=== PATIENT | female | born 1955 | race Caucasian/White ===

== ENCOUNTER → 2016-09-06 | Outpatient (CLI) | payer OTHER ==
[2016-09-06 19:57] LABS: Basophils % (A) 0 %; CH 29.7; CHCM 31.3; Eosinophils # (A) 0.2 k/uL (0-0.7); Eosinophils % (A) 3 %; HCT 42.8 % (34.0-46.0); HDW 2.27; HGB 13.6 gm/dL (11.4-16.0); Luc # (Auto) 0.09; Luc % (Auto) 2; Lymphocytes # (A) 1.2 k/uL (1.0-4.8); Lymphocytes % (A) 23 %; MCH 30.2 pg (25.0-35.0); MCHC 31.7 g/dL (31.0-37.0); MCV 95.5 fL (80.0-100.0); Mean Platelet Volume 7.4; Monocytes # (A) 0.3 k/uL (0-1.0); Monocytes % (A) 7 %; Neutrophils # (A) 3.4 k/uL (1.3-7.7); Neutrophils % (A) 65 %; RBC 4.49 m/uL (3.80-5.40); RDW 13.1 % (11.5-15.5); WBC 5.2 k/uL (3.8-10.6); WBC (Perox) 5.42
[2016-09-06 20:16] LABS: ALT 26 U/L (9-52); AST 24 U/L (14-36); Alkaline Phosphatase 78 U/L (38-126); Anion Gap 10 mmol/L; Blood Urea Nitrogen 19 mg/dL (7-17); Calcium 9.8 mg/dL (8.4-10.2); Carbon Dioxide 24 mmol/L (22-30); Chloride 105 mmol/L (98-107); Glucose 87 mg/dL (74-99); Non-African American GFR(MDRD) >60 (>60 ml/min/1.73 sqM); Potassium 4.6 mmol/L (3.5-5.1); Sodium 139 mmol/L (137-145); Total Bilirubin 0.4 mg/dL (0.2-1.3); Total Protein 6.8 g/dL (6.3-8.2)
[2016-09-06 20:20] LABS: Rheumatoid Factor, Qnt <9 IU/mL (<12)
[2016-09-07 01:38] LABS: ANA w/Reflex to Titer NEGATIVE (NEGATIVE)
== END | disposition home or self-care (01) ==
LOC: MMGSC 11:46
PROVIDERS: ATTEND Family Medicine
DX: E55.9 Vitamin D deficiency, unspecified (principal); M79.1 Myalgia; M25.50 Pain in unspecified joint
CPT/HCPCS: 36415; 80053; 82306; 84443; 85025; 86038; 86431

== ENCOUNTER → 2017-02-14 | Outpatient (CLI) | payer OTHER ==
[2017-02-14 14:04] LABS: Appearance,Urine Clear (Clear); Bacteria,Urine Rare /hpf; Bilirubin,Urine Negative (Negative); Glucose,Urine (UA) Negative (Negative); Ketones,Urine Negative (Negative); Leukocyte Esterase,Urine Negative (Negative); Nitrite,Urine Negative (Negative); PH, Urine 6.5 (5.0-8.0); Particle Count 742; Protein,Urine Negative (Negative); RBC,Urine <1 /hpf (0-5); Specific Gravity,Urine 1.003 (1.001-1.035); Squamous Epithelial Cell,Urine 2 /hpf (0-4); UA Billing (MACRO vs. MICRO) MICRO; Urobilinogen,Urine <2.0 mg/dL (<2.0); WBC,Urine <1 /hpf (0-5)
[2017-02-14 14:05] LABS: CH 29.6; CHCM 31.8; HCT 42.9 % (34.0-46.0); HDW 2.35; HGB 13.9 gm/dL (11.4-16.0); MCH 30.3 pg (25.0-35.0); MCHC 32.3 g/dL (31.0-37.0); MCV 93.7 fL (80.0-100.0); Mean Platelet Volume 6.4; RBC 4.58 m/uL (3.80-5.40); RDW 12.7 % (11.5-15.5); WBC 7.1 k/uL (3.8-10.6)
[2017-02-14 14:22] LABS: ALT 38 U/L (9-52); AST 22 U/L (14-36); Alkaline Phosphatase 78 U/L (38-126); Anion Gap 6 mmol/L; Blood Urea Nitrogen 10 mg/dL (7-17); C Reactive Protein 7.8 mg/L (<10.0); Calcium 10.3 mg/dL (8.4-10.2); Carbon Dioxide 27 mmol/L (22-30); Chloride 106 mmol/L (98-107); Creatine Kinase 58 U/L (30-135); Glucose 87 mg/dL (74-99); Magnesium 1.9 mg/dL (1.6-2.3); Non-African American GFR(MDRD) >60 (>60 ml/min/1.73 sqM); Potassium 4.2 mmol/L (3.5-5.1); Sodium 139 mmol/L (137-145); Total Bilirubin 0.6 mg/dL (0.2-1.3); Total Protein 7.1 g/dL (6.3-8.2)
[2017-02-14 15:25] LABS: Erythrocyte Sedimentation Rate 9 mm/hr (0-20)
[2017-02-18 08:39] LABS: Vitamin E (Alpha Tocopherol) 1042 ug/dL (500-1800)
[2017-02-20 19:38] LABS: Vitamin K 301 pg/mL (80-1160)
[2017-02-22 13:26] LABS: Nicotinamide 20 ng/mL; Nicotinic Acid None Detected; Nicotinuric Acid None Detected
== END | disposition home or self-care (01) ==
LOC: LABWHC1 13:25
PROVIDERS: ATTEND Psychiatry & Neurology Pain Medicine
DX: G89.4 Chronic pain syndrome (principal); R53.83 Other fatigue; Z79.899 Other long term (current) drug therapy
CPT/HCPCS: 36415; 80053; 81001; 82306; 82550; 83036; 83519; 83735; 84207; 84425; 84439; 84443; 84446; 84590; 84591; 84597; 85027; 85652; 86140

== ENCOUNTER → 2017-02-19 | Outpatient (CLI) | payer OTHER ==
--- NOTE | 2017-02-19 16:57 | MR ---
EXAMINATION TYPE: MR cspine/lspine wo con DATE OF EXAM: 02/19/2017 COMPARISON: NONE HISTORY: Headaches, Neck pain, Low back pain TECHNIQUE: Multiplanar, multisequence imaging of the lumbar and cervical spine is performed without I V contrast. FINDINGS: Lumbar spine MRI: Sagittal images of the lumbar spine show vertebral body heights and alignment to ap pear satisfactory. The intervertebral discs show loss of height and signal compatible with disc desic cation and degenerative disc disease, there is multilevel Schmorl's node formation, endplate discogen ic marrow signal change, associated spondylosis compatible with degenerative disc disease. L5-S1: Some facet arthropathy changes present. No significant foraminal encroachment or central steno sis, no sizable disc herniation. L4-5: Posterior extension of endplate disc complex contacts the anterior thecal sac. Circumferential extension of endplate disc complex encroaches somewhat on the foramen on the left possibly contribute d by spinal curvature. There is facet arthropathy with hypertrophy of the ligamentum flavum encroachi ng on the lateral recesses. L3-4: Facet arthropathy with hypertrophy of ligamentum flavum causes some encroachment on the lateral recesses, circumferential extension encroaches on the right neural foramen as well as the anterior t hecal sac. No significant central stenosis. L2-3: Circumferential posterior broad-based disc bulge causes mild anterior mass effect on the thecal sac. No significant central stenosis or foraminal encroachment. There is some facet arthropathy walters ge. L1-2: Posterior broad-based disc bulge causes mild anterior mass effect on the thecal sac. No signifi cant foraminal encroachment or central stenosis. There is mild facet arthropathy. IMPRESSION: Degenerative disc disease and facet arthropathy. Additional findings above. Cervical spine MRI: Cervical vertebral bodies show preserved height. Bone marrow signal is maintained, alignment is near- anatomic. There is multilevel spondylosis with associated loss of disc height and signal at the inter vertebral levels. Cervical cord signal, cervical medullary junction are normal. C2-3: Unremarkable C3-4: Lateral extension endplate disc complex causes some mild foraminal encroachment on the right gr eater than left, there is mild anterior mass effect on the thecal sac. C4-5: Circumferential posterior broad-based disc bulge may contact the anterior cervical cord. There is lateral extension causing foraminal encroachment right greater than left. C5-6: No significant central stenosis or foraminal encroachment. No sizable disc herniation. C6-7: Posterior extension of endplate disc complex causes anterior mass effect on the thecal sac. Lat eral extension of endplate disc complex causes some mild foraminal encroachment on the left greater t mancia right. IMPRESSION: Degenerative disc disease, multilevel foraminal encroachment as described.
== END | disposition home or self-care (01) ==
LOC: RADMRIMAIN 15:37
PROVIDERS: ATTEND Psychiatry & Neurology Pain Medicine
DX: M51.36 Other intervertebral disc degeneration, lumbar region (principal); M46.96 Unspecified inflammatory spondylopathy, lumbar region; M50.30 Other cervical disc degeneration, unspecified cervical region
CPT/HCPCS: 72141; 72148

== ENCOUNTER → 2017-12-12 | Outpatient (CLI) | payer OTHER ==
[2017-12-12 18:18] LABS: Blood Urea Nitrogen 19 mg/dL (7-17)
== END | disposition home or self-care (01) ==
LOC: LABMAIN 17:35
PROVIDERS: ATTEND Orthopaedic Surgery
DX: Z01.812 Encounter for preprocedural laboratory examination (principal); N28.9 Disorder of kidney and ureter, unspecified
CPT/HCPCS: 36415; 82565; 84520

== ENCOUNTER 2018-01-01 09:18 | Day surgery (SDC) | payer OTHER ==
[2017-12-30 08:38] VITALS: BMI 30.1
[~2018-01-01 09:18] MED LIST: Pre Op ABX Message 1 EACH MISC MISCELLANE ONE
[2018-01-01] MEDS ORDERED: ONDANSETRON 4 MG/2 ML VIAL ONE (10:37)
[2018-01-01 10:42] VITALS: TEMP 97.8
[2018-01-01] MEDS ORDERED: LACTATED RINGERS 1,000 ML IV ONE ×2 (10:44)
[2018-01-01] MEDS ORDERED: LIDOCAINE 1% 20 ML VIAL (10MG/ML) FOR IV START INTRADERMA ONE (10:45)
[2018-01-01] MEDS ORDERED: VANCOMYCIN 1,000 MG in SODIUM CHLORIDE 0.9% 250 ML IVPB SCH (10:45)
[2018-01-01] MEDS ORDERED: fentaNYL (PF) 50 MCG/ML 2 ML AMP ONE (11:15)
[2018-01-01] MEDS ORDERED: MIDAZOLAM 2 MG/2 ML VIAL ONE (11:15)
[2018-01-01] MEDS ORDERED: KETAMINE 10 MG/ML 20 ML VIAL ONE (11:15)
[2018-01-01] MEDS ORDERED: LIDOCAINE 1% INJ 10MG/ML (20 ML MDV) ONE (11:15)
[2018-01-01] MEDS ORDERED: PROPOFOL 10 MG/ML 20 ML VIAL IV ONE (11:15)
[2018-01-01] MEDS ORDERED: LIDOCAINE 2% INJ 20 MG/ML SQ ONE (11:32)
[2018-01-01] MEDS ORDERED: Acetaminophen-Codeine 300-30mg TAB PO PRN (12:00)
[2018-01-01] MEDS ORDERED: PANTOPRAZOLE 40 MG TABLET PO PRN (12:03)
[2018-01-01] MEDS ORDERED: ALBUTEROL INHALER 60 PUFF/8 GM INHALER INHALATION PRN (12:03)
[2018-01-01] MEDS ORDERED: COMBIPATCH TOPICAL SCH (12:15)
[2018-01-01 12:22] VITALS: RESP 18
--- NOTE | 2018-01-01 12:23 | P.OP ---
Date of Procedure: 01/01/18 Preoperative Diagnosis: Right foot abscess at the fourth MTP joint in between fourth and fifth metatarsals right foot pain Postoperative Diagnosis: Likely complex ganglion cyst at the fourth MTP joint right foot Anesthesia: MAC, local Pathology: other (Deep wound specimen the presumable cyst to pathology, deep wound culture to microbiology) Condition: stable Disposition: PACU Description of Procedure: BRIEF OPERATIVE NOTE Preoperative Diagnosis: Right foot abscess at the fourth and fifth metatarsals around the fourth metatarsal head, right foot pain Postoperative Diagnosis: Same plus Likely complex cyst at the fourth MTP joint Procedure: Irrigation and debridement with excisional debridement deep space of the right fourth MTP joint and between the fourth and fifth metatarsal of the right foot Surgeon: Dr. Kaplan 6Th Grade Teacher: Rob MORRISON Anesthesia: Sedation with local Estimated blood loss: Less than 10 mL Complications: None apparent Components implanted: None Specimen: Deep wound culture at the different space between fourth and fifth metatarsal to microbiology and excisional cyst material from the fourth metatarsal head to pathology Disposition: To recovery room in good stable condition. OPERATIVE INDICATIONS The patient is a very pleasant 62-year-old female who has history of fibromyalgia. She had developed erythema and drainage at her right foot between her fourth and fifth metatarsal. This had been worsening over time and there was some drainage from the space. She had seen her primary care doctor who tried to treat the area locally but there was worsening of the space and she was referred for orthopedics and on evaluation she had further drainage and erythema at the space and further workup with MRI showed reaction around the MTP joint with possible complex cyst versus hematoma versus other etiology. After discussing the various treatment options both conservative and operative we felt that the best alternative for the patient would be to pursue surgical intervention with irrigation and debridement and excisional debridement. The patient had seen Dr. Villegas in the office in this regard and have discussed case with him at length. The patient has been scheduled for surgery with him however he was unavailable due to a family emergency and I was able to see the patient in his absence. I discussed the case further with the patient and reviewed the notations and images. I was in agreement with the seizure of irrigation and debridement of the right foot. I answered the patient's questions best my ability in a language that she can understand. I discussed the risks of the procedure including but not limited to the risk of bleeding risk of infection risk and need for further surgery risk of continuing pain was of recurrent as well as the fact that surgery may not alleviate her symptoms were explained. Patient like to proceed with surgical intervention and signed informed consent. OPERATIVE SUMMARY After discussing all the risks, patient alternatives and benefits at length, the patient elected to proceed with surgical intervention, signed informed consent, and presented for their procedure. The patient was seen and examined in the preoperative holding area and the surgical site was marked. The patient was given antibiotics and brought to the operating room. The patient was sedated by anesthesia with her airway and C-spine well- maintained supine position in standard fashion. We were careful to pad any bony prominences and pressure points. We were careful to maintain the patient's cervical spine and good neutral alignment and position throughout. The patient was prepped and draped with her right foot free a tourniquet was placed over her right proximal pole thigh but was not utilized in the case in a normal standard fashion. An appropriate timeout and keystone protocol performed. We were able to proceed with the surgery. The the area proximal to the wound area was infiltrated with local anesthetic. An incision was made longitudinally at the lateral border of the fourth MTP joint over the erythematous area. There is no gross pus. The skin was indurated and there was some granular fluid was able to be excised from the subcutaneous space. This was sent to pathology. I was able to dissect down to the MTP joint of the fourth metatarsal and between the fourth and fifth metatarsals. There is no gross pus. Deep wound culture was taken at the area and sent microalgae. I was able to palpate and feel a cyst like structure and from the fourth metatarsal MTP joint. I was able to dissect it out and remove the capsule piecemeal. The mass was sent to pathology. The joint appeared to be intact. There did not seem to be direct bony involvement. There is no gross pus or infection. There was complex granular type material at the space which was removed and sent as specimen as well. Good hemostasis maintained. We were able to proceed with closure. the skin was closed with 4-0 nylon horizontal mattress sutures The wound was cleaned and dried and dressed with the appropriate dressing. The drapes were broken down. The patient was gently rolled back onto their hospital bed being careful to maintain their cervical spine and good neutral alignment and position. They were woken up by anesthesia , and brought to the recovery room in good stable condition. The patient will be able to be discharged home today when she is stable from postanesthesia care unit with appropriate discharge instructions we will plan to see her back in approximately 2 days for recheck evaluation. She'll be sent home with prophylactic antibiotics. We will continue to follow them closely about the postoperative course.
[2018-01-01] MEDS ORDERED: Acetaminophen-Codeine 300-30mg TAB PO ONE (13:25)
[2018-01-01 14:18] VITALS: BP 121/58; PULSE 80
[2018-01-01] MEDS ORDERED: traMADol 50 MG TAB PO SCH (18:00)
[2018-01-01] MEDS ORDERED: NON-FORMULARY DRUG (Dextroamphetamine/Amphetamine [Adderall] 20 MG) PO SCH (21:00)
[2018-01-01] MEDS ORDERED: ASPIRIN-ACET-CAFF 250-250-65MG 1 EACH TAB PO SCH (21:00)
[2018-01-01] MEDS ORDERED: VANCOMYCIN 1,500 MG in SODIUM CHLORIDE 0.9% 250 ML IVPB SCH (21:00)
[2018-01-01] MEDS ORDERED: ZANAFLEX PO SCH (21:00)
[2018-01-01] MEDS ORDERED: PRAMIPEXOLE 0.125 MG TAB PO SCH (21:00)
[2018-01-02] MEDS ORDERED: MULTIVITAMINS, THERA 1 EACH TAB PO SCH (09:00)
== END 2018-01-01 14:34 | disposition home or self-care (01) ==
LOC: OR 09:18
PROVIDERS: ATTEND Orthopaedic Surgery Orthopaedic Surgery of the Spine
DX: M25.871 Other specified joint disorders, right ankle and foot (principal); R23.4 Changes in skin texture; M79.7 Fibromyalgia; Z85.828 Personal history of other malignant neoplasm of skin; J45.909 Unspecified asthma, uncomplicated; K21.9 Gastro-esophageal reflux disease without esophagitis; Z79.82 Long term (current) use of aspirin; Z79.891 Long term (current) use of opiate analgesic; Z79.899 Other long term (current) drug therapy
CPT/HCPCS: 87070; 87075; 87205; 88304

== ENCOUNTER 2018-02-12 10:49 | Day surgery (SDC) | payer OTHER ==
[2018-02-10 14:37] VITALS: BMI 30.1
[~2018-02-12 10:49] MED LIST changes: +DEXAMETHASONE SOD PHOSPHATE 10 MG/ML 1 ML VIAL IV ONE; +HYDROmorphone 0.5 MG/0.5 ML SYRINGE IVP PRN; +LACTATED RINGERS 1,000 ML IV SCH; +LIDOCAINE 1% 20 ML VIAL (10MG/ML) FOR IV START INTRADERMA PRN; +ONDANSETRON 4 MG/2 ML VIAL IVP ONE; -Pre Op ABX Message 1 EACH MISC MISCELLANE ONE; +SCOPOLAMINE 1.5MG/72HR PATCH TRANSDERM ONE
[2018-02-12 11:57] VITALS: RESP 18; TEMP 98.4
[2018-02-12] MEDS ORDERED: LIDOCAINE 1% INJ 10MG/ML (20 ML MDV) ONE (12:35)
[2018-02-12] MEDS ORDERED: PROPOFOL 10 MG/ML 20 ML VIAL IV ONE (12:35)
--- NOTE | 2018-02-12 12:56 | P.PCN ---
Date of Procedure: 02/12/18 Procedure(s) Performed: Brief history: Patient is a pleasant 72-year-old white female, scheduled for an elective upper endoscopy as well as colonoscopy as a part of evaluation of long-standing history of GERD/Vail's esophagus and screening for colon neoplasia. Her last upper endoscopy and colonoscopy were done several years ago at [facility]. Procedure performed: Esophagogastroduodenoscopy Colonoscopy Preoperative diagnosis: Long-standing bleeding history of GERD Screening for colon cancer Anesthesia: MAC Procedure: After informed consent was obtained from the patient was brought into the endoscopy unit and IV sedation was administered by anesthesia under continuous monitoring. Initially upper endoscopy was done. The Olympus GF 160 video endoscope was inserted inserted into the mouth and esophagus intubated without any difficulty and was gradually advanced into the stomach and duodenum and carefully examined. The bulb and second part of the duodenum appeared normal. The scope was then withdrawn into the stomach adequately insufflated with air and upon careful examination the antrum had mild gastritic and biopsies were done from this area. The body, cardia and fundus appeared normal. The scope was then withdrawn into the esophagus. The GE junction was located at 40 cm to the incisors. Small sliding Hiatal hernia noted. It appeared regular with no erythema erosions or ulcerations. No evidence of Vail's esophagus. Rest of the esophagus appeared normal. Patient tolerated the procedure well. At this time the patient continued to remain sedation. Initial digital rectal examination was normal. Olympus CF 160 video colonoscope was then inserted into the rectum and gradually advanced to the cecum without any difficulty. Careful examination was performed as the scope was gradually being withdrawn. The prep was excellent. The cecum, ascending colon, transverse colon, descending colon, sigmoid colon and rectum appeared normal. Retroflexion was performed in the rectum and no lesions were noted. Patient tolerated the procedure well. Impression: 1. Upper endoscopy revealed small hiatal hernia and mild gastritis. No evidence of Vail's esophagus 2. Colonoscopy was within normal limits with no evidence of colitis or colorectal neoplasia Recommendations: Findings of this examination were discussed with the patient as well as her family. She was advised to follow with the biopsy results., She was advised to continue with Prilosec 20 mg daily and follow antireflux measures. She can have a repeat screening colonoscopy in 10 years
[2018-02-12 13:19] VITALS: BP 142/60; PULSE 90
== END 2018-02-12 13:40 | disposition home or self-care (01) ==
LOC: ORWHC2ENDO 10:49
PROVIDERS: ATTEND Internal Medicine Gastroenterology
DX: Z12.11 Encounter for screening for malignant neoplasm of colon (principal); K29.50 Unspecified chronic gastritis without bleeding; K44.9 Diaphragmatic hernia without obstruction or gangrene; K21.9 Gastro-esophageal reflux disease without esophagitis; J45.909 Unspecified asthma, uncomplicated; F98.8 Other specified behavioral and emotional disorders with onset usually occurring in childhood and adolescence; Z79.899 Other long term (current) drug therapy; Z79.891 Long term (current) use of opiate analgesic; Z98.51 Tubal ligation status
CPT/HCPCS: 88305; 43239; J2001; J2704; G0121

== ENCOUNTER → 2018-09-11 | Outpatient (CLI) | payer OTHER ==
--- NOTE | 2018-09-15 08:35 | MM ---
Reason for exam: screening (asymptomatic). Last mammogram was performed 2 years and 4 months ago. History: Patient is postmenopausal. Taking estrogen. Physical Findings: A clinical breast exam by your physician is recommended on an annual basis and results should be correlated with mammographic findings. MG 3D Screening Mammo W/Cad Bilateral CC and MLO view(s) were taken. Prior study comparison: May 16, 2016, mammogram. February 24, 2015, mammogram. There are scattered fibroglandular densities. No significant changes when compared with prior studies. ASSESSMENT: Benign, BI-RAD 2 RECOMMENDATION: Routine screening mammogram of both breasts in 1 year.
== END | disposition home or self-care (01) ==
LOC: RADMAMWWP 10:53
PROVIDERS: ATTEND Family Medicine
DX: Z12.31 Encounter for screening mammogram for malignant neoplasm of breast (principal)
CPT/HCPCS: 77063; 77067

== ENCOUNTER → 2020-02-02 | Outpatient (CLI) | payer BC ==
--- NOTE | 2020-02-04 11:57 | MM ---
Reason for exam: screening (asymptomatic). Last mammogram was performed 1 year and 5 months ago. History: Patient is postmenopausal. Taking estrogen. Physical Findings: A clinical breast exam by your physician is recommended on an annual basis and results should be correlated with mammographic findings. MG 3D Screening Mammo W/Cad Bilateral CC and MLO view(s) were taken. Prior study comparison: September 11, 2018, bilateral MG 3d screening mammo w/cad. May 16, 2016, mammogram. Focal asymmetry left upper outer quadrant, stable. No significant changes when compared with prior studies. ASSESSMENT: Benign, BI-RAD 2 RECOMMENDATION: Routine screening mammogram of both breasts in 1 year.
== END | disposition home or self-care (01) ==
LOC: RADMAMWWP 15:02
PROVIDERS: ATTEND Family Medicine
DX: Z12.31 Encounter for screening mammogram for malignant neoplasm of breast (principal)
CPT/HCPCS: 77063; 77067

== ENCOUNTER → 2021-05-15 | Outpatient (CLI) | payer BC ==
--- NOTE | 2021-05-16 11:13 | MM ---
Reason for exam: screening (asymptomatic). Last mammogram was performed 1 year and 3 months ago. History: Patient is postmenopausal. Taking estrogen beginning at age 56. Physical Findings: A clinical breast exam by your physician is recommended on an annual basis and results should be correlated with mammographic findings. MG 3D Screening Mammo W/Cad Bilateral CC and MLO view(s) were taken. Prior study comparison: February 02, 2020, bilateral MG 3d screening mammo w/cad. September 11, 2018, bilateral MG 3d screening mammo w/cad. There are scattered fibroglandular densities. Finding: There are indeterminate calcifications in the left breast, lateral on CC. New finding since February 02, 2020 and September 11, 2018. ASSESSMENT: Incomplete: need additional imaging evaluation, BI-RAD 0 RECOMMENDATION: Special view mammogram of the left breast. [facility] will attempt to contact patient to return for supplemental views.
== END | disposition home or self-care (01) ==
LOC: RADMAMWWP 14:51
PROVIDERS: ATTEND Family Medicine
DX: Z12.31 Encounter for screening mammogram for malignant neoplasm of breast (principal); Z78.0 Asymptomatic menopausal state
CPT/HCPCS: 77063; 77067

== ENCOUNTER → 2021-05-18 | Outpatient (CLI) | payer BC ==
--- NOTE | 2021-05-18 11:37 | MM ---
Reason for exam: additional evaluation requested from abnormal screening. Last mammogram was performed less than 1 month ago. History: Patient is postmenopausal and history of other cancer. Taking estrogen beginning at age 56. Physical Findings: Nurse did not find any significant physical abnormalities on exam. MG 3D Work Up W/Cad LT CC with magnification, LM with magnification, and LM view(s) were taken of the left breast. Prior study comparison: May 15, 2021, bilateral MG 3d screening mammo w/cad. February 02, 2020, bilateral MG 3d screening mammo w/cad. There are scattered fibroglandular densities. Faint, subtle grouped calcifications upper outer quadrant appear punctate. 6 months follow up recommended. These results were verbally communicated with the patient and result sheet given to the patient on 05/18/21. ASSESSMENT: Probably benign, BI-RAD 3 RECOMMENDATION: Follow-up diagnostic mammogram of the left breast in 6 months.
== END | disposition home or self-care (01) ==
LOC: RADMAMWWP 10:18
PROVIDERS: ATTEND Family Medicine
DX: R92.8 Other abnormal and inconclusive findings on diagnostic imaging of breast (principal); Z78.0 Asymptomatic menopausal state
CPT/HCPCS: 77061; 77065

== ENCOUNTER → 2021-05-19 | Outpatient (CLI) | payer BC ==
--- NOTE | 2021-05-19 13:32 | US ---
EXAMINATION TYPE: US abdomen complete DATE OF EXAM: 05/19/2021 COMPARISON: NONE CLINICAL HISTORY: R14.0 abd fullness. EXAM MEASUREMENTS: Liver Length: 12.3 cm Gallbladder Wall: Surgically absent CBD: 0.6 cm Spleen: 9.8 cm Right Kidney: 11.4 x 3.9 x 5.0 cm Left Kidney: 9.8 x 4.0 x 4.5 cm Pancreas: wnl as seen, mostly obscured by overlying bowel gas Liver: Increased attenuation Gallbladder: Surgically absent Evidence for sonographic Flores's sign: no CBD: wnl Spleen: wnl Right Kidney: No hydronephrosis or masses seen Left Kidney: No hydronephrosis or masses seen, measures smaller than right Upper IVC: wnl Abd Aorta: bifurcation obscured by overlying bowel gas, otherwise wnl IMPRESSION: 1. No acute changes ultrasound abdomen.
== END | disposition home or self-care (01) ==
LOC: RADUSWWP 09:41
PROVIDERS: ATTEND Family Medicine
DX: R14.0 Abdominal distension (gaseous) (principal)
CPT/HCPCS: 76700

== ENCOUNTER → 2021-12-28 | Outpatient (CLI) | payer MEDICARE ==
--- NOTE | 2021-12-28 13:21 | MM ---
Reason for Exam: Follow-up at short interval from prior study. Last screening mammogram was performed 7 month(s) ago. Patient History: Menarche at age 14. First Full-Term at age 21. Postmenopausal. Other cancer. Currently using Estrogen, starting at age 56. Risk Values: Yanique 5 year model risk: 1.5%. NCI Lifetime model risk: 5.6%. Prior Study Comparison: 02/02/2020 Bilateral Screening Mammogram, [facility]. 05/15/2021 Bilateral Screening Mammogram, [facility]. 05/18/2021 Left Diagnostic Mammogram, [facility]. Tissue Density: Left: There are scattered fibroglandular densities. Findings: Analyzed By CAD. The previous loosely grouped punctate microcalcifications upper outer quadrant left breast middle to posterior depth are unchanged. Patient can return to routine screening mammograms. Nodular asymmetric density superior subareolar region are unchanged. No significant change from prior exams. Overall Assessment: Benign, BI-RAD 2 Management: Screening Mammogram of both breasts in 6 months. 1. Patient should continue monthly self breast exams. 2. A clinical breast exam by your physician is recommended on an annual basis. 3. This exam should not preclude additional follow-up of suspicious palpable abnormalities. Electronically signed and approved by: Ariel Maria M.D. Radiologist
== END | disposition home or self-care (01) ==
LOC: RADMAMWWP 09:28
PROVIDERS: ATTEND Family Medicine
DX: R92.8 Other abnormal and inconclusive findings on diagnostic imaging of breast (principal); Z78.0 Asymptomatic menopausal state; Z85.89 Personal history of malignant neoplasm of other organs and systems
CPT/HCPCS: 77065; G0279; 77061

== ENCOUNTER → 2022-08-08 | Outpatient (CLI) | payer MEDICARE, OTHER ==
--- NOTE | 2022-08-09 07:21 | MM ---
Reason for Exam: Screening (asymptomatic). Last mammogram was performed 1 year(s) and 3 month(s) ago. Patient History: Menarche at age 14. First Full-Term at age 21. Postmenopausal. Patient has history of breast feeding. Currently using Estrogen, starting at age 56. Risk Values: Yanique 5 year model risk: 1.5%. NCI Lifetime model risk: 5.6%. Prior Study Comparison: 05/15/2021 Bilateral Screening Mammogram, [facility]. 05/18/2021 Left Diagnostic Mammogram, [facility]. 12/28/2021 Left MG 3D diag mammo w/cad LT, [facility]. Tissue Density: There are scattered fibroglandular densities. Findings: Analyzed By CAD. Benign-appearing bilateral axillary lymph nodes are redemonstrated. There is no suspicious group of microcalcifications or new suspicious mass in either breast. Overall Assessment: Negative, BI-RAD 1 Management: Screening Mammogram of both breasts in 1 year. . Patient should continue monthly self-breast exams. A clinical breast exam by your physician is recommended on an annual basis. This exam should not preclude additional follow-up of suspicious palpable abnormalities. Note on Yanique scores and lifetime risk: 1. A Yanique score greater than 3% is considered moderate risk. If this is the case, consider specialist referral to assess eligibility for a risk reducing agent. 2. If overall lifetime risk for the development of breast cancer is 20% or higher, the patient may qualify for future screening with alternating mammogram and breast MRI. Electronically signed and approved by: Hebert Wyatt M.D.
== END | disposition home or self-care (01) ==
LOC: RADMAMWWP 15:28
PROVIDERS: ATTEND Family Medicine
DX: Z12.31 Encounter for screening mammogram for malignant neoplasm of breast (principal); Z78.0 Asymptomatic menopausal state
CPT/HCPCS: 77063; 77067

== ENCOUNTER → 2024-02-13 | Outpatient (CLI) | payer MEDICARE, OTHER ==
[2024-02-13 19:25] LABS: HCT 43.2 % (37.2-46.3); HGB 13.7 g/dL (12.0-15.0); MCH 29.2 pg (27.0-32.0); MCHC 31.7 g/dL (32.0-37.0); MCV 92.1 FL (80.0-97.0); Mean Platelet Volume 9.8 FL (9.5-12.2); NRBC Per 100 WBC 0 X 10*3/uL (0.00-0.01); Platelet Count 310 X 10*3/uL (140-440); RBC 4.69 X 10*6/uL (4.10-5.20); RDW 13.2 % (11.5-14.5); WBC 9.02 X 10*3/uL (4.50-10.00)
--- NOTE | 2024-02-17 09:38 | MM ---
Reason for Exam: Screening (asymptomatic). Last mammogram was performed 1 year(s) and 6 month(s) ago. Patient History: Menarche at age 14. First Full-Term at age 21. Postmenopausal. Patient has history of breast feeding. Currently using Estrogen, starting at age 56. Risk Values: Yanique 5 year model risk: 1.5%. NCI Lifetime model risk: 5.2%. Prior Study Comparison: 05/18/2021 Left Diagnostic Mammogram, [facility]. 12/28/2021 Left MG 3D diag mammo w/cad LT, [facility]. 08/08/2022 Bilateral MG 3D screening mammo w/cad, [facility]. Tissue Density: There are scattered areas of fibroglandular density. Findings: Analyzed By CAD. Right breast: There is no suspicious group of microcalcifications or new suspicious mass. Left breast: There is no suspicious group of microcalcifications or new suspicious mass. Overall Assessment: Negative, BI-RAD 1 Management: Screening Mammogram of both breasts in [address] [facility] will attempt to contact patient to return for supplemental views and ultrasound if indicated. Patient should continue monthly self-breast exams. A clinical breast exam by your physician is recommended on an annual basis. This exam should not preclude additional follow-up of suspicious palpable abnormalities. Note on Yanique scores and lifetime risk: 1. A Yanique score greater than 3% is considered moderate risk. If this is the case, consider specialist referral to assess eligibility for a risk reducing agent. 2. If overall lifetime risk for the development of breast cancer is 20% or higher, the patient may qualify for future screening with alternating mammogram and breast MRI. [facility], , 02/17/2024 9:36 AM. Electronically signed and approved by: Dmitry Buck DO
== END | disposition home or self-care (01) ==
LOC: RADMAMWWP 14:41
PROVIDERS: ATTEND Family Medicine
DX: Z12.31 Encounter for screening mammogram for malignant neoplasm of breast (principal); Z01.818 Encounter for other preprocedural examination; Z78.0 Asymptomatic menopausal state; R92.323 Mammographic fibroglandular density, bilateral breasts
CPT/HCPCS: 77063; 77067; 85027; 93005